=== PATIENT | female | born 1975 | race Caucasian/White ===

== ENCOUNTER 2019-12-29 21:39 | Emergency (ER) | payer MEDICAID ==
[~2019-12-29] VITALS: Ht 167.6 cm; Wt 79.8 kg
[2019-12-29 21:43] VITALS: Ht 167.6 cm; Wt 79.8 kg
[2019-12-30 00:04] VITALS: BP 119/68
== END 2019-12-30 00:23 | disposition home or self-care (01) ==
LOC: ED 21:39
DX: R07.89 Other chest pain (principal); K21.9 Gastro-esophageal reflux disease without esophagitis